=== PATIENT | female | born 1965 | race Caucasian/White ===

== ENCOUNTER → 2020-08-25 | Outpatient (CLI) | payer BC | LOC: RAD 15:46 | DX: G56.20 Lesion of ulnar nerve, unspecified upper limb (principal); G57.00 Lesion of sciatic nerve, unspecified lower limb; M50.322 Other cervical disc degeneration at C5-C6 level; M51.36 Other intervertebral disc degeneration, lumbar region | CPT/HCPCS: 72040; 72100 ==

== ENCOUNTER → 2021-04-14 | Outpatient (CLI) | payer OTHER | LOC: MRI 09:44 | DX: M54.16 Radiculopathy, lumbar region (principal); M51.37 Other intervertebral disc degeneration, lumbosacral region; M48.07 Spinal stenosis, lumbosacral region | CPT/HCPCS: 72148 ==

== ENCOUNTER → 2021-07-13 | Outpatient (CLI) | payer OTHER | LOC: KOH-I 12:41 | DX: F17.210 Nicotine dependence, cigarettes, uncomplicated (principal); R59.1 Generalized enlarged lymph nodes | CPT/HCPCS: 71271 ==

== ENCOUNTER → 2021-07-25 | Outpatient (CLI) | payer OTHER | LOC: KOH-I 13:13 | DX: R79.9 Abnormal finding of blood chemistry, unspecified (principal); K80.20 Calculus of gallbladder without cholecystitis without obstruction | CPT/HCPCS: 76775 ==